=== PATIENT | female | born 1990 | race African-American/Black ===

== ENCOUNTER 2024-06-01 10:35 | Outpatient (CLI) | payer OTHER, SELFPAY ==
[2024-06-01 11:37] LABS: Cholesterol 218 mg/dL (0-200); HDL Direct 51 mg/dL; Triglycerides 105 mg/dL (<150)
[2024-06-01 11:49] LABS: LDL Cholesterol Direct 117 mg/dL
[2024-06-01 12:18] LABS: Free T4 Free Thyroxine 0.88 ng/mL (0.78-2.19); Vitamin D 25 Hydroxy 35.5 ng/mL
[2024-06-01 12:47] LABS: Hemoglobin A1C 5.8 % (<5.7)
[2024-06-03 11:17] LABS: DHEA-Sulfate 270 mcg/dL (19-237)
[2024-06-03 12:13] LABS: Progesterone 5.6 ng/mL; Prolactin 12.3 ng/mL
[2024-06-04 17:14] LABS: Testosterone Total 35 ng/dL (2-45)
== END 2024-06-01 10:36 | disposition home or self-care (01) ==
LOC: ANHLAB 10:43
PROVIDERS: Visit Provider Obstetrics & Gynecology
DX: E28.2 Polycystic ovarian syndrome (principal)
CPT/HCPCS: 36415; 80061; 82306; 82607; 82627; 83036; 84144; 84146; 84403; 84439; 84443

== ENCOUNTER 2024-06-03 12:44 | Outpatient (CLI) | payer OTHER, SELFPAY ==
--- NOTE | ~2024-06-03 | US_ITS ---
EXAMINATION: US pelvic complete w TV DATE: 06/03/2024 13:10 INDICATION: Ovarian cyst. Pelvic pain. TECHNIQUE: Multiple transabdominal and transvaginal sonographic images of the pelvis were obtained. COMPARISON: None. FINDINGS: TRANSABDOMINAL ULTRASOUND: The uterus measures 8.1 x 4.7 x 3.5 cm. There is no free fluid in the pelvis. TRANSVAGINAL ULTRASOUND: The endometrial complex measures 3 mm in thickness. There is an intrauterine device in expected posit ion. The right ovary measures 3.2 x 2.0 x 2.3 cm. The left ovary measures 3.3 x 2.0 x 1.5 cm. There i s normal vascular flow in the ovaries. IMPRESSION: 1. Intrauterine device in expected position. Reviewed, dictated and finalized at location A.
== END 2024-06-03 12:45 ==
LOC: GOSHIMG 12:45
PROVIDERS: PCP Obstetrics & Gynecology; Visit Provider Obstetrics & Gynecology
DX: E28.2 Polycystic ovarian syndrome (principal); R10.2 Pelvic and perineal pain; Z97.5 Presence of (intrauterine) contraceptive device
CPT/HCPCS: 76830; 76856